=== PATIENT | female | born 2000 ===

== ENCOUNTER 2022-01-16 13:33 | Outpatient (REF) | payer OTHER, SELFPAY ==
[2022-01-17 13:38] LABS: CT PCR NOT DETECTED (Not Detect.); NG PCR NOT DETECTED (Not Detect.)
[2022-01-18 14:55] LABS: BV Int Neg Control Negative (Negative); BV Int Pos Control Positive (Positive)
== END 2022-01-16 13:34 | disposition home or self-care (01) ==
LOC: HO.LNP 13:33
PROVIDERS: Visit Provider Advanced Practice Midwife
DX: Z32.02 Encounter for pregnancy test, result negative (principal); N89.8 Other specified noninflammatory disorders of vagina
CPT/HCPCS: 81025; 87480; 87491; 87510; 87591; 87660